=== PATIENT | female | born 1980 | race Caucasian/White ===

== ENCOUNTER 2017-01-30 12:40 | Emergency (ER) | payer BC ==
[2017-01-30 12:49] VITALS: BP 136/86; PULSE 68; RESP 18; TEMP 98; O2SAT 98
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
== END 2017-01-30 13:21 | disposition home or self-care (01) ==
LOC: CED 12:40
DX: S06.0X0A Concussion without loss of consciousness, initial encounter (principal); Z91.040 Latex allergy status; V18.0XXA Pedal cycle driver injured in noncollision transport accident in nontraffic accident, initial encounter; Y92.410 Unspecified street and highway as the place of occurrence of the external cause; Y99.8 Other external cause status; Y93.55 Activity, bike riding